=== PATIENT | female | born 1950 | race Hispanic/Latino ===

== ENCOUNTER → 2019-01-08 | Day surgery (SDC) | payer MEDICARE ==
[2019-01-05 13:36] LABS: BASOPHILS % 0.8 % (0.0-1.0); EOSINOPHILS # (AUTO) 0.1 (0.0-0.4); EOSINOPHILS % 2.3 % (0.0-6.0); HEMATOCRIT 40.4 % (34.2-44.1); HEMOGLOBIN 13.7 g/dL (12.0-16.0); LYMPHOCYTES # (AUTO) 1.7 (1.0-3.2); LYMPHOCYTES % 32.2 % (18.0-39.1); MEAN CORPUSCULAR HEMOGLOBIN 32.2 pg (28-32); MEAN CORPUSCULAR HGB CONC 33.9 g/dL (31-35); MEAN CORPUSCULAR VOLUME 94.8 fL (81-99); MONOCYTES # (AUTO) 0.4 (0.2-0.8); MONOCYTES % 7.9 % (4.4-11.3); NEUTROPHILS # (AUTO) 2.9 (2.1-6.9); NEUTROPHILS % 56.4 % (38.7-80.0); PLATELET COUNT 316 x10e3/uL (140-360); RED BLOOD COUNT 4.26 x10e6/uL (3.6-5.1); RED CELL DISTRIBUTION WIDTH 11.9 % (11.7-14.4)
[~2019-01-08] MED LIST: FENTANYL CITRATE/PF 100MCG/2 ML INJ ONE; HYOSCYAMINE 0.125 MG TAB ONE; MAGNESIUM OXID400 MG PO; MEGA PO; MIDAZOLAM HCL 2 MG/2 ML VIAL ONE; PROPOFOL IV EMULSION 10 MG/ML 50 ML VIAL ONE; TURMERIC PO; VITAMIN B-121000 MCG PO; VITAMIN B-650 MG PO; vitamin E PO
--- OUTSIDE RECORDS SUMMARY | 2019-01-08 14:01 | XMS REPORT | Clinical Summary ---
Author Author [facility] [employer] [facility] [employer] Address Unknown Phone Unavailable Care Team Providers Care Technology Assistant Name Role Phone Maria Dolores Hernandez MD PCP Allergies Not on File Medications End Date Status Medication Sig Dispensed Refills Start Date 01/14/2018 naproxen (NAPROSYN) 500 Take 1 tablet 180 tablet 0 10/16/201 MG tablet (500 mg 8 total) by mouth 2 (two) times a day for 90 days. Active Problems Problem Noted Date Radiculitis 09/15/2017 Low back pain 09/15/2017 Social History Date Tobacco Use Types Packs/Day Years Used Never Smoker Smokeless Tobacco: Never Used Drinks/Week oz/Week Comments Alcohol Use No Sex Assigned at Date Recorded Not on file Industry Job Start Date Occupation Not on file Not on file Not on file Travel End Travel History Travel Start No recent travel history available. Last Filed Vital Signs Not on file Plan of Treatment Health Maintenance Due Date Last Done Comments BREAST CANCER SCREENING 1999 COLONOSCOPY SCREENING 1999 SHINGLES VACCINES (#1) 1999 65+ PNEUMOCOCCAL VACCINE 2014 (1 of 2 - PCV13) INFLUENZA VACCINE 11/19/2018 Results Not on fileafter 01/07/2018 Insurance Type Payer Benefit Subscriber ID Effective Phone Address Plan / Dates Group HMO [employer] C[employer] xxxxxxxx [id number] [employer] resent [place] HMO MCR ADV Advance Directives For more information, please contact: [phone] Patient Travel Pt Explanation Type Date Recorded Advance Directives, Living Will 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
[2019-01-08 20:15] VITALS: BP 125/80
--- NOTE | 2019-01-09 03:42 | Operative Report ---
DATE OF PROCEDURE: 01/08/2019 SURGEON: Humberto Curry MD PROCEDURE: Colonoscopy with polypectomy. INDICATIONS FOR COLONOSCOPY: Surveillance colonoscopy, personal history of colon polyps. MEDICATIONS: The patient was done under MAC. Please see anesthesiologist's note. PROCEDURE IN DETAIL: With the patient in left lateral decubitus position, flexible fiberoptic Olympus colonoscope was inserted into the rectum with ease and advanced all the way to the cecum. A minute polyp was removed from the cecum per the cold biopsy forceps. An approximately 2.2 cm sessile polypoid lesion was noted in the proximal ascending colon that was partially resected with the snare electrocautery and it was hemoclipped x3. One polyp was removed per cold biopsy forceps. An additional polyp was snared from the ascending colon. There was a the ascending transverse and descending as well as the sigmoid appeared to be within normal limits. Three polyps were hot biopsied from the rectum. The scope was then retroflexed into the distal rectum and small internal hemorrhoids were noted, none of which was actively bleeding. The scope was then straightened out, it was subsequently withdrawn. The patient tolerated the procedure well. IMPRESSION: 1. Cecal polyp removed per cold biopsy forceps. 2. Approximately 2.2 cm sessile polypoid lesion in proximal ascending colon, partially resected per snare electrocautery and hemoclipped x3. 3. Ascending colon polyps x2, one snared and one removed per cold biopsy forceps. 4. Rectal polyps x3, hot biopsied. 5. Internal hemorrhoids none actively bleeding. PLAN: Follow up histology. The patient will need a followup colonoscopy in 2-3 months to remove any residual polypoid tissue in the ascending colon. MD UDAY Holliday/IGNACIO /[id number] cc: Mario Wilder MD
== END | disposition home or self-care (01) ==
LOC: OR 13:59
PROVIDERS: ATTEND Internal Medicine Gastroenterology
DX: Z09 Encounter for follow-up examination after completed treatment for conditions other than malignant neoplasm (principal); D12.0 Benign neoplasm of cecum; D12.2 Benign neoplasm of ascending colon; D12.8 Benign neoplasm of rectum; K64.8 Other hemorrhoids; I10 Essential (primary) hypertension; I45.10 Unspecified right bundle-branch block; Z01.810 Encounter for preprocedural cardiovascular examination; Z01.812 Encounter for preprocedural laboratory examination; Z68.37 Body mass index [BMI] 37.0-37.9, adult
CPT/HCPCS: 36415; 45380; 45384; 45385; 85025; 88305; 93005; J2250; J2704; J3010